=== PATIENT | male | born 1990 | race Caucasian/White ===

== ENCOUNTER 2019-07-13 10:51 | Outpatient (CLI) | payer OTHER ==
--- NOTE | 2019-07-13 12:27 | MRI ---
MRI BRAIN WITH AND WITHOUT IV CONTRAST: HISTORY: Migraine without aura. Headaches and visual disturbances. FINDINGS: No restricted diffusion is seen. No evidence of infarct, hemorrhage, mass, midline shift or abnormal extraaxial fluid collection is noted. No abnormal post contrast enhancement is seen. The ventricular size is normal and the basilar cisterns are patent. There is a mucus retention cyst versus polyp in t he left maxillary sinus. IMPRESSION: 1. No evidence of acute intracranial process or mass. 2. Mucus retention cyst versus polyp in the left maxillary sinus. POS: [facility]
[2019-07-13] MEDS ORDERED: Magnevist 469MG/ML 20 ML VIAL ONE (15:35)
== END 2019-07-13 10:52 | disposition home or self-care (01) ==
LOC: BICMRI 10:51
PROVIDERS: ATTEND Psychiatry & Neurology Neurology
DX: G43.019 Migraine without aura, intractable, without status migrainosus (principal)
CPT/HCPCS: 70553; A9579

== ENCOUNTER 2021-07-23 12:26 | Outpatient (CLI) | payer BC | END 2021-07-23 12:27 | disposition home or self-care (01) | LOC: MRI 12:26 | PROVIDERS: ATTEND Psychiatry & Neurology Neurology | DX: H53.19 Other subjective visual disturbances (principal) | CPT/HCPCS: 70553; 95816; 95957 ==